=== PATIENT | male | born 1940 | race Hispanic/Latino ===

== ENCOUNTER 2017-12-16 06:07 | Day surgery (SDC) | payer MEDICARE, MEDICAID ==
[2017-02-15 10:48] VITALS: BMI 41.0
[2017-12-16] MEDS ORDERED: Propofol 10 mg/ml Inj (20 ML) ONE (08:09)
[2017-12-16] MEDS: Lactated Ringer's 1,000 ML IV ONE (08:10)
--- NOTE | 2017-12-16 08:40 | CP.SDSHP ---
Same Day Surgery H & P - History Proposed Procedure: colonoscopy Pre-Op Diagnosis: polyp - Previous Medical/Surgical History Cardiac: Hypertension Endocrine/Metabolic: Diabetes - Allergies Allergies: Allergies No Known Allergies Allergy (Verified 10/04/16 14:59) - Physical Exam Vital Signs: Vital Signs 12/16/17 06:37 Temperature 98 F Pulse Rate 80 Respiratory 20 Rate Blood Pressure 118/63 O2 Sat by Pulse 98 Oximetry Mental Status: Alert & Oriented x3 Neuro: WNL Heart: WNL Lungs: WNL GI: WNL - {Optional Preform as Required} Abdomen: WNL - Impression Impression: polyp Pt. Evaluated Today:Candidate for Anesthesia & Procedure: Yes - Date & Time Date: 12/16/17 Time: 08:00 Short Stay Discharge - Short Stay Discharge Admitting Diagnosis/Reason for Visit: COLONIC POLYP Disposition: HOME/ ROUTINE
[2017-12-16 09:25] VITALS: PULSE 71
[2017-12-16 10:05] VITALS: BP 116/71; RESP 22; TEMP 97.9; O2SAT 96
== END 2017-12-16 10:00 | disposition home or self-care (01) ==
LOC: C.ENDO 06:07
PROVIDERS: ATTEND Internal Medicine Gastroenterology
DX: K63.5 Polyp of colon (principal); E11.9 Type 2 diabetes mellitus without complications; I10 Essential (primary) hypertension; D12.2 Benign neoplasm of ascending colon; D12.3 Benign neoplasm of transverse colon; K64.8 Other hemorrhoids